=== PATIENT | male | born 1995 | race African-American/Black ===

== ENCOUNTER 2017-03-29 | Emergency (ER) | payer SELFPAY ==
[2017-03-29 00:01] VITALS: BP 139/76; PULSE 117; RESP 22; TEMP 98.5; O2SAT 93
[2017-03-29] MEDS ORDERED: ALBUAER3 INH (00:08)
[2017-03-29 00:12] VITALS: O2SAT 97
[2017-03-29 00:15] VITALS: O2SAT 99
[2017-03-29] MEDS ORDERED: SODIUM CHLOR 0.9% 1000 ML INJ 1,000 ML IV ONE (00:15)
[2017-03-29] MEDS: RESP: ALBUTEROL 2.5 MG/IPRATROPIUM 0.5 MG NEB (SCH) INH (00:15)
[2017-03-29] MEDS ORDERED: methylPREDNISolone SOD SUCC 125 MG/2 ML VIAL IV PUSH ONE (00:15)
[2017-03-29] MEDS ORDERED: MORPHINE SULFATE 2 MG/ML INJ IV PUSH ONE (00:15)
[2017-03-29] MEDS ORDERED: SODIUM CHLORIDE 0.9% FLUSH 10 ML FLUSH IVF PRN (00:15)
[2017-03-29 00:54] LABS: AUTOMATED NEUTROPHIL # 2.3 TH/MM3 (1.8-7.7); BASOPHIL % 0.8 % (0.0-2.0); EOSINOPHIL # 0.2 TH/MM3 (0-0.4); EOSINOPHIL % 3.4 % (0.0-4.0); HEMATOCRIT 41.2 % (39.0-51.0); LYMPHOCYTE # 1.5 TH/MM3 (1.0-4.8); MEAN CELL VOLUME 86.2 FL (80.0-100.0); MEAN CORPUSCULAR HGB CONC 33.6 % (32.0-36.0); MONO % 15.2 % (0.0-8.0); NEUT % 48.6 % (16.0-70.0); PLATELET COUNT 294 TH/MM3 (150-450); RED BLOOD COUNT 4.77 MIL/MM3 (4.50-5.90); RED CELL DISTRIBUTION WIDTH 19.9 % (11.6-17.2); WHITE BLOOD COUNT 4.8 TH/MM3 (4.0-11.0)
--- NOTE | 2017-03-29 01:05 | RADRPT ---
EXAM DATE/TIME: 03/29/2017 00:31 [facility] COMPARISON: No previous studies available for comparison. INDICATIONS : Shortness of breath. MEDICAL HISTORY : None. SURGICAL HISTORY : None. ENCOUNTER: Initial ACUITY: 1 day PAIN SCORE: 0/10 LOCATION: Bilateral chest FINDINGS: A single view of the chest demonstrates the lungs to be symmetrically aerated without evidence of mas s, infiltrate or effusion. The cardiomediastinal contours are unremarkable. Osseous structures are intact. CONCLUSION: No acute disease. Jensen Griffith MD on March 29, 2017 at 1:02 Board Certified Radiologist. This report was verified electronically.
[2017-03-29 01:09] LABS: ANION GAP 8 MEQ/L (5-15); BICARBONATE 28.7 MEQ/L (21.0-32.0); BLOOD UREA NITROGEN 12 MG/DL (7-18); CHLORIDE 104 MEQ/L (98-107); GLOMERULAR FILTRATION RATE 80 ML/MIN (>89); POTASSIUM 3.1 MEQ/L (3.5-5.1); SODIUM (NA) 141 MEQ/L (136-145)
[2017-03-29] MEDS: RESP: ALBUTEROL 2.5 MG/3 ML NEB (SCH) INH (01:15)
[2017-03-29 01:23] LABS: CREATINE KINASE 1063 U/L (39-308)
[2017-03-29 01:35] LABS: CKMB 5.5 NG/ML (0.5-3.6)
[2017-03-29 01:37] VITALS: BP 160/68; PULSE 94; RESP 16; O2SAT 99
--- NOTE | 2017-03-29 01:57 | PD ---
HPI Chief Complaint: Respiratory Symptoms Time Seen by Provider: 00:04 Travel History International Travel<30 days: No Contact w/Intl Traveler<30days: No History of Present Illness HPI The patient is 21 years old. History of asthma. He reports wheezing shortness of breath tonight. He also reports chest tightness. He does not recall last took steroids. Location pulmonary. Severity moderate. TIming constant. PFSH Past Medical History Asthma: Yes Tetanus Vaccination: Unknown Influenza Vaccination: No Past Surgical History Other Surgery: Yes (right arm surgery ) Social History Alcohol Use: No (occasional ) Tobacco Use: Yes Substance Use: No Allergies-Medications (Allergen,Severity, Reaction): Coded Allergies: No Known Allergies (Verified Allergy, Unknown, 03/29/17) Reported Meds & Prescriptions Reported Meds & Active Scripts Active Reported Proair Hfa 8.5 GM Inh (Albuterol Sulfate) 90 Mcg/Act Aer 2 Puff INH Q4-6H PRN 108 mcg/actuation Review of Systems Except as stated in HPI: all other systems reviewed are Neg General / Constitutional: No: Fever HENT: No: Headaches Physical Exam Narrative GENERAL: 21 yo M WNWD moderate distress 2/2 wehezing SKIN: Warm and dry. HEAD: Atraumatic. Normocephalic. EYES: Pupils equal and round. No scleral icterus. No injection or drainage. ENT: No nasal bleeding or discharge. Mucous membranes pink and moist. NECK: Trachea midline. No JVD. CARDIOVASCULAR: Tachycardia. RR. RESPIRATORY: Wheezing present bilaterally. Tachypnea with retractions. GASTROINTESTINAL: Abdomen soft, non-tender, nondistended. Hepatic and splenic margins not palpable. MUSCULOSKELETAL: Extremities without clubbing, cyanosis, or edema. No obvious deformities. NEUROLOGICAL: Awake and alert. No obvious cranial nerve deficits. Motor grossly within normal limits. Five out of 5 muscle strength in the arms and legs. Normal speech. PSYCHIATRIC: Appropriate mood and affect; insight and judgment normal. Data Data Last Documented VS Vital Signs Date Time Temp Pulse Resp B/P (MAP) Pulse Ox O2 Delivery O2 Flow Rate FiO2 03/29/17 01:37 94 16 160/68 (98) 99 2.00 03/29/17 00:15 Nasal Cannula 03/29/17 00:01 98.5 VS reviewed Orders Orders Chest, Single Ap (03/29/17 00:06) Ecg Monitoring (03/29/17 00:06) Iv Access Insert/Monitor (03/29/17 00:06) Oximetry (03/29/17 00:06) Oxygen Administration (03/29/17 00:06) Methylprednisolone So Succ Inj (Solumedr (03/29/17 00:15) Albuterol-Ipratropium Neb (Duoneb Neb) (03/29/17 00:15) Sodium Chloride 0.9% Flush (Ns Flush) (03/29/17 00:15) Sodium Chlor 0.9% 1000 Ml Inj (Ns 1000 M (03/29/17 00:15) Morphine Inj (Morphine Inj) (03/29/17 00:15) Electrocardiogram (03/29/17:) Complete Blood Count With Diff (03/29/17:) Basic Metabolic Panel (Bmp) (03/29/17:17) Ckmb (Isoenzyme) Profile (03/29/17:) Troponin I (03/29/17:) Iv Access Insert/Monitor (03/29/17:17) Ecg Monitoring (03/29/17:17) Oxygen Administration (03/29/17:17) Oximetry (03/29/17:17) Albuterol Neb (Albuterol Neb) (03/29/17 01:15) CKMB (03/29/17 00:23) CKMB% (03/29/17 00:23) Electrocardiogram (03/29/17 ) Ed Discharge Order (03/29/17 02:33) Labs Laboratory Tests Test 03/29/17 00:23 White Blood Count 4.8 TH/MM3 Red Blood Count 4.77 MIL/MM3 Hemoglobin 13.8 GM/DL Hematocrit 41.2 % Mean Corpuscular Volume 86.2 FL Mean Corpuscular Hemoglobin 29.0 PG Mean Corpuscular Hemoglobin Concent 33.6 % Red Cell Distribution Width 19.9 % Platelet Count 294 TH/MM3 Mean Platelet Volume 8.3 FL Neutrophils (%) (Auto) 48.6 % Lymphocytes (%) (Auto) 32.0 % Monocytes (%) (Auto) 15.2 % Eosinophils (%) (Auto) 3.4 % Basophils (%) (Auto) 0.8 % Neutrophils # (Auto) 2.3 TH/MM3 Lymphocytes # (Auto) 1.5 TH/MM3 Monocytes # (Auto) 0.7 TH/MM3 Eosinophils # (Auto) 0.2 TH/MM3 Basophils # (Auto) 0.0 TH/MM3 CBC Comment AUTO DIFF Differential Comment AUTO DIFF CONFIRMED Platelet Estimate NORMAL Platelet Morphology Comment NORMAL Blood Urea Nitrogen 12 MG/DL Creatinine 1.14 MG/DL Random Glucose 71 MG/DL Calcium Level 9.0 MG/DL Sodium Level 141 MEQ/L Potassium Level 3.1 MEQ/L Chloride Level 104 MEQ/L Carbon Dioxide Level 28.7 MEQ/L Anion Gap 8 MEQ/L Estimat Glomerular Filtration Rate 80 ML/MIN Total Creatine Kinase 1063 U/L Creatine Kinase MB 5.5 NG/ML Creatine Kinase MB % 0.5 % Troponin I LESS THAN 0.02 NG/ML MDM Medical Decision Making Medical Screen Exam Complete: Yes Emergency Medical Condition: Yes Medical Record Reviewed: Yes Differential Diagnosis asthma, pna, ptx Narrative Course CBC & BMP Diagram 03/29/17 00:23 Calcium Level 9.0 Total CK 1063 Tn < 0.02 EKG Troponin is less than 0.02 Last 24 hours Impressions Chest X-Ray 03/29/17 0006 Signed Impressions: Service Date/Time: Monday, March 29, 2017 00:31 - CONCLUSION: No acute disease. Jensen Griffith MD Presentation c/w asthma exacerbation Scripts as below Diagnosis Primary Impression: Asthma exacerbation Qualified Codes: J45.901 - Unspecified asthma with (acute) exacerbation Additional Impression: Chest pain Qualified Codes: R07.9 - Chest pain, unspecified Referrals: [facility] 2 days Additional Instructions: You have a choice when it comes to health care, and we are glad that you chose [facility]. Hopefully, we have met your expectations on today's visit. You are welcome to return to [facility] at any time, as we are committed to meeting the health care needs of our community. Med/Other Pt SpecificInfo: Prescription(s) given Scripts Albuterol Neb (Albuterol Neb) 2.5 Mg/3 Ml Neb 2.5 MG NEB TID NEB Y for SHORTNESS OF BREATH, #60 NEBULE 0 Refills Prov: Mandeep Russ MD 03/29/17 Disposition: DISCHARGE HOME Condition: Stable Mandeep Russ MD Mar 29, 2017 01:57
[2017-03-29 02:27] LABS: HEMO FLAGS AUTO DIFF
[2017-03-29 02:32] LABS: PLATELET ESTIMATE SMEAR NORMAL (NORMAL); PLATELET MORPHOLOGY NORMAL (NORMAL); SCAN/DIFF AUTO DIFF CONFIRMED
[2017-03-29] MEDS ORDERED: ALBU0.08 NEB (02:34)
[2017-03-29] MEDS ORDERED: PRED20 PO (02:36)
--- NOTE | 2017-03-29 15:28 | EKG ---
Date Performed: 03/29/2017 Time Performed: 02:15:09 PTAGE: 21 years EKG: Sinus rhythm WITH FREQUENT ATRIAL PREMATURE COMPLEXES BORDERLINE RIGHT AXIS DEVIATION NONSPECIFIC ST & T-WAVE ABN ORMALITY ABNORMAL RHYTHM ECG Compared to prior tracing no significant change DOCTOR: Digna Bangura Interpretating Date/Time 03/29/2017 15:28:06
--- NOTE | 2017-03-29 15:31 | EKG ---
Date Performed: 03/29/2017 Time Performed: 00:17:28 PTAGE: 21 years EKG: SINUS TACHYCARDIA WITH OCCASIONAL VENTRICULAR PREMATURE COMPLEXES WITH OCCASIONAL SUPRAVENT RICULAR PREMATURE COMPLEXES BORDERLINE RIGHT AXIS DEVIATION NONSPECIFIC ST & T-WAVE ABNORMALITY ABNOR MAL ECG Compared to prior tracing no significant change DOCTOR: Digna Bangura Interpretating Date/Time 03/29/2017 15:30:05
== END 2017-03-29 03:01 | disposition home or self-care (01) ==
LOC: NEPC
DX: J45.901 Unspecified asthma with (acute) exacerbation (principal); R07.9 Chest pain, unspecified; R94.31 Abnormal electrocardiogram [ECG] [EKG]; R00.0 Tachycardia, unspecified; I49.3 Ventricular premature depolarization; Z72.0 Tobacco use
CPT/HCPCS: 71010; 80048; 82550; 82552; 84484; 85025; 93005; 94640; 94664; 96361; 96374; 96375; 99285; J2270; J2930; J7030; J7613

== ENCOUNTER 2017-07-23 12:01 | Inpatient (IN) | payer OTHER ==
[2017-07-23] VITALS (10 sets, daily range): BP systolic 127–149; BP diastolic 68–89; PULSE 99–127; RESP 16–28; TEMP 98.4–100.6; O2SAT 92–100
[~2017-07-23] VITALS: Ht 182.9 cm; Wt 75.0 kg
[~2017-07-23 12:01] MED LIST: ALBU0.08 NEB; ALBUAER3 INH; PRED20 PO
--- NOTE | 2017-07-23 12:13 | PD ---
HPI Chief Complaint: Respiratory Symptoms Time Seen by Provider: 12:09 Travel History International Travel<30 days: No Contact w/Intl Traveler<30days: No Traveled to known affect area: No History of Present Illness HPI 21-year-old male with PMH of asthma, environmental allergies, current smoker presents to the ED for evaluation of approximately 24 hour history of increased breathing difficulties, wheezing, chest tightness. He denies chest pain, palpitations. Patient states that he's had a little sinus congestion and runny nose and sore throat that proceeded his difficulties with breathing. He treated at home with albuterol nebulizer about 4 hours ago with no improvement of symptoms. He treated at home with a few puffs on his rescue inhaler and 2 albuterol treatments total. PFSH Past Medical History Asthma: Yes Respiratory: Yes Past Surgical History Other Surgery: Yes (right arm surgery ) Social History Alcohol Use: No (occasional ) Tobacco Use: Yes Substance Use: No Allergies-Medications (Allergen,Severity, Reaction): Coded Allergies: No Known Allergies (Verified Allergy, Unknown, 07/23/17) Reported Meds & Prescriptions Reported Meds & Active Scripts Active Albuterol Neb (Albuterol Sulfate) 2.5 Mg/3 Ml Neb 2.5 Mg NEB TID NEB PRN Reported Proair Hfa 8.5 GM Inh (Albuterol Sulfate) 90 Mcg/Act Aer 2 Puff INH Q4-6H PRN 108 mcg/actuation Review of Systems Except as stated in HPI: all other systems reviewed are Neg Physical Exam Narrative GENERAL: Well-nourished, well-developed male, speaking in short sentences. SKIN: Focused skin assessment warm/dry. HEAD: Normocephalic. EYES: No scleral icterus. No injection or drainage. NECK: Supple, trachea midline. No JVD or lymphadenopathy. CARDIOVASCULAR: Regular rate and rhythm without murmurs, gallops, or rubs. RESPIRATORY: Breath sounds tight, wheezy bilaterally. + accessory muscle use. GASTROINTESTINAL: Abdomen soft, non-tender, nondistended. MUSCULOSKELETAL: No cyanosis, or edema. BACK: Nontender without obvious deformity. No CVA tenderness. Data Data Last Documented VS Vital Signs Date Time Temp Pulse Resp B/P (MAP) Pulse Ox O2 Delivery O2 Flow Rate FiO2 07/23/17 15:10 121 20 135/75 (95) 96 Nasal Cannula 2.00 07/23/17 12:04 98.4 Orders Orders Electrocardiogram (07/23/17 12:09) Complete Blood Count With Diff (07/23/17 12:09) Comprehensive Metabolic Panel (07/23/17 12:09) Chest, Single Ap (07/23/17 12:09) Ecg Monitoring (07/23/17 12:09) Iv Access Insert/Monitor (07/23/17 12:09) Oximetry (07/23/17 12:09) Oxygen Administration (07/23/17 12:09) Methylprednisolone So Succ Inj (Solumedr (07/23/17 12:15) Albuterol-Ipratropium Neb (Duoneb Neb) (07/23/17 12:15) Sodium Chloride 0.9% Flush (Ns Flush) (07/23/17 12:15) Sodium Chlor 0.9% 1000 Ml Inj (Ns 1000 M (07/23/17 12:15) Albuterol Neb (Albuterol Neb) (07/23/17 13:45) Admit Order (Ed Use Only) (07/23/17 15:33) Labs Laboratory Tests Test 07/23/17 12:40 White Blood Count 5.4 TH/MM3 Red Blood Count 4.61 MIL/MM3 Hemoglobin 15.0 GM/DL Hematocrit 43.7 % Mean Corpuscular Volume 94.7 FL Mean Corpuscular Hemoglobin 32.5 PG Mean Corpuscular Hemoglobin Concent 34.3 % Red Cell Distribution Width 16.5 % Platelet Count 244 TH/MM3 Mean Platelet Volume 7.9 FL Neutrophils (%) (Auto) 73.5 % Lymphocytes (%) (Auto) 11.6 % Monocytes (%) (Auto) 12.5 % Eosinophils (%) (Auto) 1.9 % Basophils (%) (Auto) 0.5 % Neutrophils # (Auto) 4.0 TH/MM3 Lymphocytes # (Auto) 0.6 TH/MM3 Monocytes # (Auto) 0.7 TH/MM3 Eosinophils # (Auto) 0.1 TH/MM3 Basophils # (Auto) 0.0 TH/MM3 CBC Comment DIFF FINAL Differential Comment Blood Urea Nitrogen 9 MG/DL Creatinine 1.21 MG/DL Random Glucose 83 MG/DL Total Protein 8.1 GM/DL Albumin 4.2 GM/DL Calcium Level 9.2 MG/DL Alkaline Phosphatase 69 U/L Aspartate Amino Transf (AST/SGOT) 43 U/L Alanine Aminotransferase (ALT/SGPT) 26 U/L Total Bilirubin 0.3 MG/DL Sodium Level 139 MEQ/L Potassium Level 4.0 MEQ/L Chloride Level 104 MEQ/L Carbon Dioxide Level 25.0 MEQ/L Anion Gap 10 MEQ/L Estimat Glomerular Filtration Rate 90 ML/MIN MDM Medical Decision Making Medical Screen Exam Complete: Yes Emergency Medical Condition: Yes Differential Diagnosis Asthma exacerbation versus seasonal/environmental allergies versus viral syndrome versus other Narrative Course 21-year-old male with PMH of asthma, environmental allergies, current smoker presents to the ED for evaluation of approximately 24 hour history of increased breathing difficulties, wheezing, chest tightness. He denies chest pain, palpitations. He treated at home with a few puffs on his rescue inhaler and 2 albuterol treatments total. Heart rate 117, pulse ox 95% on room air on presentation. On exam the patient is speaking in short sentences, breath sounds tight and diminished bilaterally. IV was established. Patient was administered 125 mg Solu-Medrol, DuoNeb 3. EKG: Rate 122, sinus tachycardia. [place] interval 136, QRS 92, QTC 379. Borderline right axis deviation. Nonspecific T-wave abnormalities. Reviewed by Dr. Lynn. CXR: No acute abnormalities per radiology read. CBC and CMP without concerning abnormalities. On recheck patient states that his symptoms have not improved. Lung sounds now diffusely whistling and wheezing. He was administered albuterol treatments 3. O2 sats fluctuating between 87 and 94% on room air. Patient was placed on 2 L O2 by nasal cannula. Given his continued distress I recommended that the patient be admitted for further treatment of his asthma exacerbation. He is agreeable to this plan. I spoke with Dr. Torres who agrees to accept the patient to the medicine service. Please see medicine notes for disposition. Shanique Hoover Jul 23, 2017 12:13
[2017-07-23] MEDS ORDERED: methylPREDNISolone SOD SUCC 125 MG/2 ML VIAL IV PUSH ONE (12:15)
[2017-07-23] MEDS ORDERED: SODIUM CHLORIDE 0.9% FLUSH 10 ML FLUSH IVF PRN (12:15)
[2017-07-23] MEDS ORDERED: SODIUM CHLOR 0.9% 1000 ML INJ 1,000 ML IV ONE (12:15)
[2017-07-23] MEDS: RESP: ALBUTEROL 2.5 MG/IPRATROPIUM 0.5 MG NEB (SCH) INH ×2 (12:18→12:19)
[2017-07-23 13:19] LABS: BASOPHIL % 0.5 % (0.0-2.0); EOSINOPHIL # 0.1 TH/MM3 (0-0.4); EOSINOPHIL % 1.9 % (0.0-4.0); HEMATOCRIT 43.7 % (39.0-51.0); LYMPH % 11.6 % (9.0-44.0); LYMPHOCYTE # 0.6 TH/MM3 (1.0-4.8); MEAN CELL VOLUME 94.7 FL (80.0-100.0); MEAN CORPUSCULAR HEMOGLOBIN 32.5 PG (27.0-34.0); MEAN CORPUSCULAR HGB CONC 34.3 % (32.0-36.0); MEAN PLATELET VOLUME 7.9 FL (7.0-11.0); MONO % 12.5 % (0.0-8.0); MONOCYTE # 0.7 TH/MM3 (0-0.9); NEUT % 73.5 % (16.0-70.0); PLATELET COUNT 244 TH/MM3 (150-450); RED BLOOD COUNT 4.61 MIL/MM3 (4.50-5.90); RED CELL DISTRIBUTION WIDTH 16.5 % (11.6-17.2); WHITE BLOOD COUNT 5.4 TH/MM3 (4.0-11.0)
[2017-07-23 13:37] LABS: ALT (GPT) 26 U/L (12-78)
[2017-07-23 13:40] LABS: ALBUMIN 4.2 GM/DL (3.4-5.0); ALKALINE PHOSPHATASE 69 U/L (45-117); AST (GOT) 43 U/L (15-37); BLOOD UREA NITROGEN 9 MG/DL (7-18); CALCIUM 9.2 MG/DL (8.5-10.1); CHLORIDE 104 MEQ/L (98-107); CREATININE 1.21 MG/DL (0.60-1.30); GLOMERULAR FILTRATION RATE 90 ML/MIN (>89); GLUCOSE,RANDOM 83 MG/DL (74-106); SODIUM (NA) 139 MEQ/L (136-145); TOTAL BILIRUBIN ADULT 0.3 MG/DL (0.2-1.0); TOTAL PROTEIN 8.1 GM/DL (6.4-8.2)
--- NOTE | 2017-07-23 13:44 | PD ---
Data Data Last Documented VS Vital Signs Date Time Temp Pulse Resp B/P (MAP) Pulse Ox O2 Delivery O2 Flow Rate FiO2 07/23/17 15:10 121 20 135/75 (95) 96 Nasal Cannula 2.00 07/23/17 12:04 98.4 Orders Orders Electrocardiogram (07/23/17 12:09) Complete Blood Count With Diff (07/23/17 12:09) Comprehensive Metabolic Panel (07/23/17 12:09) Chest, Single Ap (07/23/17 12:09) Ecg Monitoring (07/23/17 12:09) Iv Access Insert/Monitor (07/23/17 12:09) Oximetry (07/23/17 12:09) Oxygen Administration (07/23/17 12:09) Methylprednisolone So Succ Inj (Solumedr (07/23/17 12:15) Albuterol-Ipratropium Neb (Duoneb Neb) (07/23/17 12:15) Sodium Chloride 0.9% Flush (Ns Flush) (07/23/17 12:15) Sodium Chlor 0.9% 1000 Ml Inj (Ns 1000 M (07/23/17 12:15) Albuterol Neb (Albuterol Neb) (07/23/17 13:45) Admit Order (Ed Use Only) (07/23/17 15:33) Labs Laboratory Tests Test 07/23/17 12:40 White Blood Count 5.4 TH/MM3 Red Blood Count 4.61 MIL/MM3 Hemoglobin 15.0 GM/DL Hematocrit 43.7 % Mean Corpuscular Volume 94.7 FL Mean Corpuscular Hemoglobin 32.5 PG Mean Corpuscular Hemoglobin Concent 34.3 % Red Cell Distribution Width 16.5 % Platelet Count 244 TH/MM3 Mean Platelet Volume 7.9 FL Neutrophils (%) (Auto) 73.5 % Lymphocytes (%) (Auto) 11.6 % Monocytes (%) (Auto) 12.5 % Eosinophils (%) (Auto) 1.9 % Basophils (%) (Auto) 0.5 % Neutrophils # (Auto) 4.0 TH/MM3 Lymphocytes # (Auto) 0.6 TH/MM3 Monocytes # (Auto) 0.7 TH/MM3 Eosinophils # (Auto) 0.1 TH/MM3 Basophils # (Auto) 0.0 TH/MM3 CBC Comment DIFF FINAL Differential Comment Blood Urea Nitrogen 9 MG/DL Creatinine 1.21 MG/DL Random Glucose 83 MG/DL Total Protein 8.1 GM/DL Albumin 4.2 GM/DL Calcium Level 9.2 MG/DL Alkaline Phosphatase 69 U/L Aspartate Amino Transf (AST/SGOT) 43 U/L Alanine Aminotransferase (ALT/SGPT) 26 U/L Total Bilirubin 0.3 MG/DL Sodium Level 139 MEQ/L Potassium Level 4.0 MEQ/L Chloride Level 104 MEQ/L Carbon Dioxide Level 25.0 MEQ/L Anion Gap 10 MEQ/L Estimat Glomerular Filtration Rate 90 ML/MIN MDM Supervised Visit with LEANDRA: Yes Narrative Course I, Dr. Lynn, have reviewed the advance practice practitioner's documentation and am in agreement, met with the patient face to face, made the diagnosis, and the medical decision making was done by me. *My assessment and Findings: Patient seen and examined by me, remains tachypneic with inspiratory and expiratory wheezing, may have an anxiety component of his symptoms, saturations are variable and patient reluctant to hold still for adequate sat waveform, patient states this is 1 or more severe asthma attacks ever had in his life, after. Observation in the emergency department and a total of 6 breathing treatments patient still is very worked up about his shortness of breath and will be placed in observation status per Tarun Lynn MD Jul 23, 2017 13:44
[2017-07-23] MEDS: RESP: ALBUTEROL 2.5 MG/3 ML NEB (SCH) INH ×2 (13:47→13:48)
--- NOTE | 2017-07-23 14:10 | RADRPT ---
EXAM DATE/TIME: 07/23/2017 12:35 [facility] COMPARISON: CHEST SINGLE AP, March 29, 2017, 0:31. INDICATIONS : Wheezing and shortness of breath. MEDICAL HISTORY : None. SURGICAL HISTORY : None. ENCOUNTER: Initial ACUITY: 2 days PAIN SCORE: 0/10 LOCATION: Bilateral chest FINDINGS: A single view of the chest demonstrates the lungs to be symmetrically aerated without evidence of mas s, infiltrate or effusion. The lungs are hyperaerated bilaterally. The cardiomediastinal contours are unremarkable. Osseous structures are intact. CONCLUSION: No acute disease. No significant change has occurred. Richard Doe MD on July 23, 2017 at 14:08 Board Certified Radiologist. This report was verified electronically.
[2017-07-23] MEDS ORDERED: ACETAMINOPHEN 325 MG TAB PO PRN (15:45)
[2017-07-23] MEDS ORDERED: SODIUM CHLORIDE 0.9% FLUSH 10 ML FLUSH IV FLUSH PRN (15:45)
[2017-07-23] MEDS ORDERED: SENNOSIDES 8.6 MG TAB PO PRN (15:45)
[2017-07-23] MEDS ORDERED: MAGNESIUM HYDROXIDE SUSP 30 ML CUP PO PRN (15:45)
[2017-07-23] MEDS ORDERED: LACTULOSE SYRUP 20 GM/30 ML CUP PO PRN (15:45)
[2017-07-23] MEDS ORDERED: BISACODYL 10 MG SUPP RECTAL PRN (15:45)
[2017-07-23] MEDS ORDERED: NALOXONE HCL 0.4 MG/ML AMP IV PUSH PRN (15:45)
[2017-07-23] MEDS ORDERED: ONDANSETRON HCL 4 MG/2 ML VIAL IVP PRN (15:45)
[2017-07-23] MEDS: RESP: ALBUTEROL 2.5 MG/IPRATROPIUM 0.5 MG NEB (SCH) NEB ×2 (16:00→19:51)
[2017-07-23] MEDS: ENOXAPARIN SODIUM 40 MG/0.4 ML SYRINGE SQ SCH (17:00)
[2017-07-23] MEDS ORDERED: methylPREDNISolone SOD SUCC 40 MG/1 ML VIAL IV PUSH ONE (17:00)
--- NOTE | 2017-07-23 17:02 | HHI.HP ---
[facility] Service [facility] Primary Care Physician No Primary Care Physician Admission Diagnosis asthma exacerbation Diagnoses: (1) Asthma exacerbation Chief Complaint: Shortness of breath Travel History International Travel<30 Days: No Contact w/Intl Traveler <30 Da: No Traveled to Known Affected Are: No History of Present Illness Written by Mya Foss, acting as scribe for Dr. Torres on 07/23/17 at 17:15. 21-year-old Italian male with past medical history significant for asthma and seasonal allergies who presents to the ED with complaints of difficulty breathing and wheezing. Patient reports that difficulty breathing began last night and reports trying to use his home medications with little relief. He does endorse some chills, denies fever. He also reports productive cough for a yellow/greenish sputum, as any ill contacts. He does smoke tobacco as well as occasional marijuana, denies any illicit drug use or inhalation of drugs or cocaine. He repots visiting the ED about twice a year due to asthma exacerbation , had never required mechanical ventilation. Review of Systems Constitutional: COMPLAINS OF: Chills, DENIES: Fever Respiratory: COMPLAINS OF: Cough, Wheezing, Sputum production, Shortness of breath Cardiovascular: DENIES: Chest pain, Syncope Integumentary: DENIES: Rash Except as stated in HPI: all other systems reviewed are Neg Past Family Social History Past Medical History Asthma Seasonal allergies Past Surgical History Right arm skin grafting due to deep laceration Reported Medications Reported Meds & Active Scripts Active Albuterol Neb (Albuterol Sulfate) 2.5 Mg/3 Ml Neb 2.5 Mg NEB TID NEB PRN Reported Proair Hfa 8.5 GM Inh (Albuterol Sulfate) 90 Mcg/Act Aer 2 Puff INH Q4-6H PRN 108 mcg/actuation Allergies: Coded Allergies: No Known Allergies (Verified Allergy, Unknown, 07/23/17) Active Ordered Medications Current Medications Medications (Trade) Dose Ordered Sig/Tabby Route Start Time Stop Time Status Last Admin (Duoneb Neb) 1 ampule Q4HR WHILE AWAKE NEB NEB 07/23/17 16:00 07/23/17 16:00 (Duoneb Neb) 1 ampule Q2HR NEB PRN NEB 07/23/17 15:45 (Deltasone) 40 mg DAILY PO 07/24/17 09:00 07/28/17 08:59 (NS Flush) 2 ml UNSCH PRN IV FLUSH 07/23/17 15:45 (NS Flush) 2 ml BID IV FLUSH 07/23/17 21:00 (Tylenol) 650 mg Q4H PRN PO 07/23/17 15:45 (Zofran Inj) 4 mg Q6H PRN IVP 07/23/17 15:45 (Lovenox Inj) 40 mg Q24H SQ 07/23/17 17:00 (Narcan Inj) 0.4 mg UNSCH PRN IV PUSH 07/23/17 15:45 (Francheska-Colace) 1 tab BID PO 07/23/17 21:00 (Milk Of Magnesia Liq) 30 ml Q12H PRN PO 07/23/17 15:45 (Senokot) 17.2 mg Q12H PRN PO 07/23/17 15:45 (Dulcolax Supp) 10 mg DAILY PRN RECTAL 07/23/17 15:45 (Lactulose Liq) 30 ml DAILY PRN PO 07/23/17 15:45 Family History Denies significant PFH for asthma, CA, DM, hear disease, or CA Social History Tobacco: current user Alcohol: socially Illicit drug use: marijuana occasionally Physical Exam Vital Signs Vital Signs Date Time Temp Pulse Resp B/P (MAP) Pulse Ox O2 Delivery O2 Flow Rate FiO2 07/23/17 16:37 99.1 119 18 149/74 (99) 92 07/23/17 15:10 121 20 135/75 (95) 96 Nasal Cannula 2.00 07/23/17 13:40 93 Room Air 07/23/17 13:40 26 93 Room Air 07/23/17 13:30 112 28 129/89 (102) 93 07/23/17 12:04 98.4 117 16 127/68 (87) 95 Physical Exam GENERAL: This is a well-nourished, well-developed patient, -Italian male in no apparent distress. SKIN: No rashes, ecchymoses. Right forearm skin graph scar noted. Cool and dry. HEAD: Atraumatic. Normocephalic. EYES: Pupils equal round and reactive. No scleral icterus. No injection or drainage. ENT: Nose without bleeding, purulent drainage or septal hematoma. Throat without erythema, tonsillar hypertrophy or exudate. Uvula midline. Airway patent. NECK: Trachea midline. No JVD CARDIOVASCULAR: Sinus tachycardia, without murmurs, gallops, or rubs. RESPIRATORY: Expiratory and inspiratory wheezing noted throughout all lung dillon, diminished at bilateral bases. No rhonchi, crackles noted. Visible deep breathing. GASTROINTESTINAL: Abdomen soft, non-tender, nondistended. No guarding. MUSCULOSKELETAL: Extremities without clubbing, cyanosis, or edema. No joint tenderness, effusion, or edema noted. NEUROLOGICAL: Awake and alert. Cranial nerves II through XII grossly intact. Motor and sensory grossly within normal limits. Five out of 5 muscle strength in all muscle groups. Normal speech. Laboratory Laboratory Tests Test 07/23/17 12:40 White Blood Count 5.4 Red Blood Count 4.61 Hemoglobin 15.0 Hematocrit 43.7 Mean Corpuscular Volume 94.7 Mean Corpuscular Hemoglobin 32.5 Mean Corpuscular Hemoglobin Concent 34.3 Red Cell Distribution Width 16.5 Platelet Count 244 Mean Platelet Volume 7.9 Neutrophils (%) (Auto) 73.5 Lymphocytes (%) (Auto) 11.6 Monocytes (%) (Auto) 12.5 Eosinophils (%) (Auto) 1.9 Basophils (%) (Auto) 0.5 Neutrophils # (Auto) 4.0 Lymphocytes # (Auto) 0.6 Monocytes # (Auto) 0.7 Eosinophils # (Auto) 0.1 Basophils # (Auto) 0.0 CBC Comment DIFF FINAL Differential Comment Blood Urea Nitrogen 9 Creatinine 1.21 Random Glucose 83 Total Protein 8.1 Albumin 4.2 Calcium Level 9.2 Alkaline Phosphatase 69 Aspartate Amino Transf (AST/SGOT) 43 Alanine Aminotransferase (ALT/SGPT) 26 Total Bilirubin 0.3 Sodium Level 139 Potassium Level 4.0 Chloride Level 104 Carbon Dioxide Level 25.0 Anion Gap 10 Estimat Glomerular Filtration Rate 90 Result Diagram: 07/23/17 1240 07/23/17 1240 Caprini VTE Risk Assessment Caprini VTE Risk Assessment: No/Low Risk (score <= 1) Caprini Risk Assessment Model Point Value = 1 Point Value = 2 Point Value = 3 Point Value = 5 Age 41-60 Minor surgery BMI > 25 kg/m2 Swollen legs Varicose veins or History of unexplained or recurrent spontaneous Oral contraceptives or hormone replacement Sepsis (< 1 month) Serious lung disease, including pneumonia (< 1 month) Abnormal pulmonary function Acute myocardial infarction Congestive heart failure (< 1 month) History of inflammatory bowel disease Medical patient at bed rest Age 61-74 Arthroscopic surgery Major open surgery (> 45 min) Laparoscopic surgery (> 45 min) Malignancy Confined to bed (> 72 hours) Immobilizing plaster cast Central venous access Age >= 75 History of VTE Family history of VTE Factor V Leiden Prothrombin [id number] Lupus anticoagulant Anticardiolipin antibodies Elevated serum homocysteine Heparin-induced thrombocytopenia Other congenital or acquired thrombophilia Stroke (< 1 month) Elective arthroplasty Hip, pelvis, or leg fracture Acute spinal cord injury (< 1 month) Prophylaxis Regimen Total Risk Factor Score Risk Level Prophylaxis Regimen 0-1 Low Early ambulation 2 Moderate Order ONE of the following: *Sequential Compression Device (SCD) *Heparin 5000 units SQ BID 3-4 Higher Order ONE of the following medications: *Heparin 5000 units SQ TID *Enoxaparin/Lovenox 40 mg SQ daily (WT < 150 kg, CrCl > 30 mL/min) *Enoxaparin/Lovenox 30 mg SQ daily (WT < 150 kg, CrCl > 10-29 mL/min) *Enoxaparin/Lovenox 30 mg SQ BID (WT < 150 kg, CrCl > 30 mL/min) AND/OR *Sequential Compression Device (SCD) 5 or more Highest Order ONE of the following medications: *Heparin 5000 units SQ TID (Preferred with Epidurals) *Enoxaparin/Lovenox 40 mg SQ daily (WT < 150 kg, CrCl > 30 mL/min) *Enoxaparin/Lovenox 30 mg SQ daily (WT < 150 kg, CrCl > 10-29 mL/min) *Enoxaparin/Lovenox 30 mg SQ BID (WT < 150 kg, CrCl > 30 mL/min) AND *Sequential Compression Device (SCD) Assessment and Plan Assessment and Plan 21-year-old male with PMH of asthma who currently smokes who presents to the ED with SOB and wheezing not relieved with albuterol treatments at home. Asthma exacerbation Acute respiratory failure with hypoxia desaturating on room air, now requiring oxygen supplement - Provided with neb treatments in ED, Solumedrol 125mg IV - Chest x-ray reviewed, no acute disease. CBC with no leukocytosis, VS reviewed ST and tachypnea likely related to albuterol and steroids, afebrile on admission, 99.1 temp around 4pm - Duonebs Q4hrs while awake, PRN duonebs Q2hrs as needed - Oxygent supplement via nasal cannula keep O2 sats >94% - Solumederol 40mg IV Q6hrs - Check CTA to rule out PE - Check ABG, reviewed o2 sat 89% on 2L NC, compensating well, O2 increased to 4L NC, add IS, EZ pap - Monitor O2 saturation, taper down O2 as needed. - Consider starting antibiotics for possible CAP if he develops leukocytosis Tobacco use - Discussed the importance of tobacco and marijuana cessation and dangers associated with this. DVT prophylaxis- subq Lovenox Discussed with nurse, patient and girlfriend at bedside. This note was transcribed by RENO Cam . I, Dr. Danielle Torres personally performed the history, physical exam, and medical decision making; and confirmed the accuracy of the information in the transcribed note. Authenticated by Dr. Danielle Torres on 07/23/17 at 17:15. Discussed Condition With pt, nurse, ED physician Mya Foss Jul 23, 2017 17:02 Danielle Torres MD Jul 23, 2017 17:54
[2017-07-23] MEDS ORDERED: MAGNESIUM OXIDE 400 MG TAB PO ONE (18:15)
[2017-07-23] MEDS ORDERED: IOHEXOL 350 MG/ML 10 ML VIAL (for RAD DIAG) IVCONTRAST ONE (18:24)
--- NOTE | 2017-07-23 18:51 | RADRPT ---
EXAM DATE/TIME: 07/23/2017 18:21 [facility] COMPARISON: No previous studies available for comparison. INDICATIONS : Shortness of breath; rule out pulmonary embolus. IV CONTRAST: 72 cc Omnipaque 350 (iohexol) IV RADIATION DOSE: 7.44 CTDIvol (mGy) MEDICAL HISTORY : None SURGICAL HISTORY : Right arm surgery ENCOUNTER: Initial ACUITY: 1 day PAIN SCALE: 0/10 LOCATION: chest TECHNIQUE: Volumetric scanning of the chest was performed using a pulmonary embolism protocol MIP images were re constructed. Using automated exposure control and adjustment of the mA and/or kV according to patien t size, radiation dose was kept as low as reasonably achievable to obtain optimal diagnostic quality images. DICOM format image data is available electronically for review and comparison. Follow-up recommendations for detected pulmonary nodules are based at a minimum on nodule size and pa tient risk factors according to Fleischner Society Guidelines. FINDINGS: PULMONARY ARTERIES: No filling defects are seen in the pulmonary arteries through the segmental level. LUNGS: There is no consolidation or pneumothorax . No concerning pulmonary nodule is visualized. Peribronch ial thickening present. PLEURAE: There is no pleural thickening or pleural effusion. MEDIASTINUM: There is good visualization of the great vessels of the middle mediastinum. No evidence of mediastin al or hilar adenopathy/mass. MUSCULOSKELETAL: Within normal limits for patient age. MISCELLANEOUS: The visualized upper abdominal organs demonstrate no acute abnormality. CONCLUSION: 1. Negative for pulmonary embolus. Mild peribronchial thickening especially at the lung bases. Miguel Ángel Adan MD on July 23, 2017 at 18:48 Board Certified Radiologist. This report was verified electronically.
[2017-07-23] MEDS: DOCUSATE SODIUM 50 MG/SENNA 8.6 MG TAB PO SCH (21:00)
[2017-07-23] MEDS: SODIUM CHLORIDE 0.9% FLUSH 10 ML FLUSH IV FLUSH SCH (21:30)
[2017-07-23] MEDS: RESP: ALBUTEROL 2.5 MG/IPRATROPIUM 0.5 MG NEB (PRN) NEB (22:10)
[2017-07-24] VITALS (8 sets, daily range): BP systolic 118–134; BP diastolic 56–66; PULSE 83–99; RESP 16–20; TEMP 97.9–99; O2SAT 94–98
[2017-07-24] MEDS: methylPREDNISolone SOD SUCC 40 MG/1 ML VIAL IV PUSH SCH ×3 (00:39→11:00)
[2017-07-24] MEDS: RESP: ALBUTEROL 2.5 MG/IPRATROPIUM 0.5 MG NEB (PRN) NEB (01:25)
[2017-07-24] MEDS: RESP: ALBUTEROL 2.5 MG/IPRATROPIUM 0.5 MG NEB (SCH) NEB ×3 (07:07→15:12)
[2017-07-24 07:14] LABS: HEMATOCRIT 43.1 % (39.0-51.0); MEAN CELL VOLUME 92.4 FL (80.0-100.0); MEAN CORPUSCULAR HEMOGLOBIN 32.2 PG (27.0-34.0); MEAN CORPUSCULAR HGB CONC 34.8 % (32.0-36.0); MEAN PLATELET VOLUME 8.4 FL (7.0-11.0); PLATELET COUNT 287 TH/MM3 (150-450); RED BLOOD COUNT 4.66 MIL/MM3 (4.50-5.90); RED CELL DISTRIBUTION WIDTH 16.3 % (11.6-17.2); WHITE BLOOD COUNT 6.7 TH/MM3 (4.0-11.0)
[2017-07-24 07:43] LABS: BICARBONATE 26.6 MEQ/L (21.0-32.0); CALCIUM 9.6 MG/DL (8.5-10.1); CREATININE 0.96 MG/DL (0.60-1.30)
[2017-07-24] MEDS: DOCUSATE SODIUM 50 MG/SENNA 8.6 MG TAB PO SCH (07:45)
[2017-07-24] MEDS: SODIUM CHLORIDE 0.9% FLUSH 10 ML FLUSH IV FLUSH SCH (07:46)
[2017-07-24 08:18] LABS: BANDS 8 % (0-6); LYMPHOCYTES 4 % (9-44); MONOCYTES 2 % (0-8); NEUTROPHIL # MANUAL DIFF 6.3 TH/MM3 (1.8-7.7); POLYS (SEG NEUTROPHILS) 86 % (16-70)
[2017-07-24] MEDS ORDERED: predniSONE 10 MG TAB PO SCH (09:00)
--- NOTE | 2017-07-24 10:00 | HHI.PR ---
Subjective Remarks f/u for asthma exacerbation patient stated breathing has improved but continues to feel SOB. Denied any cough. He remains afebrile. Still on oxygen. Objective Vitals Vital Signs Date Time Temp Pulse Resp B/P (MAP) Pulse Ox O2 Delivery O2 Flow Rate FiO2 07/24/17 08:38 97.9 98 17 134/65 (88) 98 07/24/17 07:10 97 21 07/24/17 04:00 98.3 87 19 118/56 (76) 95 07/24/17 00:00 99.0 99 20 131/66 (87) 98 07/23/17 21:00 98.9 99 20 138/69 (92) 100 07/23/17 20:00 127 07/23/17 19:54 96 Nasal Cannula 4.00 07/23/17 19:39 100.6 112 18 139/76 (97) 96 07/23/17 17:47 95 Nasal Cannula 4.00 07/23/17 16:37 99.1 119 18 149/74 (99) 92 07/23/17 15:10 121 20 135/75 (95) 96 Nasal Cannula 2.00 07/23/17 13:40 93 Room Air 07/23/17 13:40 26 93 Room Air 07/23/17 13:30 112 28 129/89 (102) 93 07/23/17 12:04 98.4 117 16 127/68 (87) 95 I/O 07/23/17 07/23/17 07/23/17 07/24/17 07/24/17 07/24/17 07:00 15:00 23:00 07:00 15:00 23:00 Intake Total 1000 ml Balance 1000 ml Intake IV Total 1000 ml Result Diagram: 07/24/1760107/24/17601 Objective Remarks GENERAL: in NAD CARDIOVASCULAR: Regular rate and rhythm without murmurs, gallops, or rubs. RESPIRATORY: diffuse expiratory wheezing. No accessory muscle use. GASTROINTESTINAL: Abdomen soft, non-tender, nondistended. Medications and IVs Current Medications Methylprednisolone Sodium Succinate (SoluMEDROL INJ) 125 mg ONCE ONCE IV PUSH Last administered on 07/23/17at 12:32; Start 07/23/17 at 12:15; Stop 07/23/17 at 12:16; Status DC Albuterol/ Ipratropium (Duoneb Neb) 1 ampule Q15M INH Last administered on 07/23at 12:19; Start 07/23/17 at 12:15; Stop 07/23/17 at 12:46; Status DC Sodium Chloride (NS Flush) 2 ml UNSCH PRN IVF FLUSH AFTER USING IV ACCESS; Start 07/23/17 at 12:15; Stop 07/23/17 at 15:55; Status DC Sodium Chloride 1,000 ml @ 999 mls/hr BOLUS ONCE IV Last administered on 07/23at 13:39; Start 07/23/17 at 12:15; Stop 07/23/17 at 13:15; Status DC Albuterol Sulfate (Albuterol Neb) 2.5 mg Q15M INH Last administered on at 13:48; Start 07/23/17 at 13:45; Stop 07/23/17 at 14:16; Status DC Albuterol/ Ipratropium (Duoneb Neb) 1 ampule Q4HR WHILE AWAKE NEB NEB Last administered on 07/24/17at 07:07; Start 07/23/17 at 16:00 Albuterol/ Ipratropium (Duoneb Neb) 1 ampule Q2HR NEB PRN NEB SOB/WHEEZING Last administered on 07/24/17at 01:25; Start 07/23/17 at 15:45 Prednisone (Deltasone) 40 mg DAILY PO ; Start 07/24/17 at 09:00; Stop 07/24/17 at 09:00; Status DC Sodium Chloride (NS Flush) 2 ml UNSCH PRN IV FLUSH FLUSH AFTER USING IV ACCESS ; Start 07/23/17 at 15:45 Sodium Chloride (NS Flush) 2 ml BID IV FLUSH Last administered on 07/24/17at 07: 46; Start 07/23/17 at 21:00 Acetaminophen (Tylenol) 650 mg Q4H PRN PO TEMP > 100.4; Start 07/23/17 at 15:45 Ondansetron HCl (Zofran Inj) 4 mg Q6H PRN IVP NAUSEA OR VOMITING; Start at 15:45 Enoxaparin Sodium (Lovenox Inj) 40 mg Q24H SQ ; Start 07/23/17 at 17:00 Naloxone HCl (Narcan Inj) 0.4 mg UNSCH PRN IV PUSH SEE LABEL COMMENTS; Start at 15:45 Senna/Docusate Sodium (Francheska-Colace) 1 tab BID PO ; Start 07/23/17 at 21:00 Magnesium Hydroxide (Milk Of Magnesia Liq) 30 ml Q12H PRN PO Mild constipation ; Start 07/23/17 at 15:45 Sennosides (Senokot) 17.2 mg Q12H PRN PO Moderate constipation; Start 07/23/17 at 15:45 Bisacodyl (Dulcolax Supp) 10 mg DAILY PRN RECTAL SEVERE CONSITIPATION; Start at 15:45 Lactulose (Lactulose Liq) 30 ml DAILY PRN PO SEVERE CONSITIPATION; Start at 15:45 Methylprednisolone Sodium Succinate (SoluMEDROL INJ) 40 mg ONCE ONCE IV PUSH Last administered on 07/23/17at 17:12; Start 07/23/17 at 17:00; Stop 07/23/17 at 17:02; Status DC Methylprednisolone Sodium Succinate (SoluMEDROL INJ) 40 mg Q6HR IV PUSH Last administered on 07/24/17at 06:11; Start 07/24/17 at 00:00 Magnesium Oxide (Mag-Ox) 400 mg ONCE ONCE PO ; Start 07/23/17 at 18:15; Stop at 18:16; Status DC Iohexol (Omnipaque 350 Inj) 72 ml STK-MED ONCE IVCONTRAST Last administered on 07/23/17at 18:24; Start 07/23/17 at 18:24; Stop 07/23/17 at 18:25; Status DC A/P Problem List: (1) Asthma exacerbation ICD Code: J45.901 - Unspecified asthma with (acute) exacerbation Assessment and Plan 21-year-old male with PMH of asthma who currently smokes who presents to the ED with SOB and wheezing not relieved with albuterol treatments at home. Asthma exacerbation Acute respiratory failure with hypoxia desaturating on room air, now requiring oxygen supplement - Chest x-ray reviewed, no acute disease. CTA no PE -clinically improving continue with duonebs, albuterol, solumedrol. Tobacco use - Discussed the importance of tobacco and marijuana cessation and dangers associated with this. DVT prophylaxis- subq Lovenox Inga Rao MD Jul 24, 2017 10:00
--- NOTE | 2017-07-24 15:20 | EKG ---
Date Performed: 07/23/2017 Time Performed: 15:25:00 PTAGE: 21 years EKG: SINUS TACHYCARDIA BORDERLINE RIGHT AXIS DEVIATION PATTERN CONSISTENT WITH PULMONARY DISEASE POSSIBLE RIGHT VENTRICULAR CONDUCTION DELAY NONSPECIFIC T-WAVE ABNORMALITY Compared to previous trac ing, rate has increased ABNORMAL ECG PREVIOUS TRACING : 03/29/2017 02.15 DOCTOR: Bello Moore Interpretating Date/Time 07/24/2017 15:19:57
[2017-07-24] MEDS ORDERED: ALBUAER3 INH (15:36)
[2017-07-24] MEDS ORDERED: IPRAAER INH (15:36)
[2017-07-24] MEDS ORDERED: PRED10PA PO (15:36)
--- NOTE | 2017-07-24 15:37 | HHI.DCPOC ---
Discharge Care Plan Diagnosis: (1) Asthma exacerbation Additional Problems Id symptoms worsens return to emergency department or call 911. Goals to Promote Your Health * To prevent worsening of your condition and complications * To maintain your health at the optimal level Directions to Meet Your Goals Take your medications as prescribed Follow your dietary instruction Follow activity as directed Keep your appointments as scheduled Take your immunizations and boosters as scheduled If your symptoms worsen call your PCP, if no PCP go to Urgent Care Center or Emergency Room Smoking is Dangerous to Your Health. Avoid second hand smoke Call the 24-hour hour crisis hotline for domestic abuse at Inga Rao MD Jul 24, 2017 15:37
--- NOTE | 2017-07-24 15:38 | HHI.DS ---
Discharge Summary Admission Date Jul 23, 2017 at 18:05 Admitting Diagnosis asthma exacerbation (1) Asthma exacerbation ICD Code: J45.901 - Unspecified asthma with (acute) exacerbation Brief History - From Admission Written by Mya Foss, acting as scribe for Dr. Torres on 07/23/17 at 17:15. 21-year-old [place] male with past medical history significant for asthma and seasonal allergies who presents to the ED with complaints of difficulty breathing and wheezing. Patient reports that difficulty breathing began last night and reports trying to use his home medications with little relief. He does endorse some chills, denies fever. He also reports productive cough for a yellow/greenish sputum, as any ill contacts. He does smoke tobacco as well as occasional marijuana, denies any illicit drug use or inhalation of drugs or cocaine. He repots visiting the ED about twice a year due to asthma exacerbation , had never required mechanical ventilation. CBC/BMP: 07/24/17 0602 07/24/17 0602 Significant Findings Laboratory Tests Test 07/23/17 12:40 07/23/17 17:10 07/23/17 17:15 07/24/17 06:02 Neutrophils (%) (Auto) 73.5 % (16.0-70.0) Monocytes (%) (Auto) 12.5 % (0.0-8.0) Lymphocytes # (Auto) 0.6 TH/MM3 (1.0-4.8) Aspartate Amino Transf (AST/SGOT) 43 U/L (15-37) Urine Cannabinoids Screen POS (NEG) Blood Gas Oxygen Saturation 89 % (90-100) Neutrophils % (Manual) 86 % (16-70) Band Neutrophils % 8 % (0-6) Lymphocytes % 4 % (9-44) Random Glucose 119 MG/DL (74-106) PE at Discharge GENERAL: in NAD CARDIOVASCULAR: Regular rate and rhythm without murmurs, gallops, or rubs. RESPIRATORY: diffuse expiratory wheezing. No accessory muscle use. GASTROINTESTINAL: Abdomen soft, non-tender, nondistended. Pt Condition on Discharge: Good Discharge Disposition: Discharge Home Discharge Instructions DIET: Follow Instructions for: As Tolerated, No Restrictions Activities you can perform: Regular-No Restrictions Inga Rao MD Jul 24, 2017 15:38
[2017-07-24] MEDS: ENOXAPARIN SODIUM 40 MG/0.4 ML SYRINGE SQ SCH (17:00)
== END 2017-07-24 17:51 | disposition home or self-care (01) | DRG 189 ==
LOC: NEPC 12:01 → NEDA 15:34 → NEPHCDU 16:35 → OBSVTOIN 18:05 → N05A 21:00
PROVIDERS: ADMIT Family Medicine; ATTEND Family Medicine
DX: J96.01 Acute respiratory failure with hypoxia (principal); J45.901 Unspecified asthma with (acute) exacerbation; F17.200 Nicotine dependence, unspecified, uncomplicated; R68.83 Chills (without fever); R00.0 Tachycardia, unspecified
CPT/HCPCS: 36600; 71045; 71275; 76937; 80048; 80053; 80307; 82805; 85007; 85025; 85027; 93005; 94150; 94640; 94664; 96361; 96374; J2920; J2930; J7030; J7613; Q9967

== ENCOUNTER 2017-10-14 04:23 | Emergency (ER) | payer OTHER ==
[~2017-10-14] VITALS: Ht 182.9 cm; Wt 75.0 kg
[~2017-10-14 04:23] MED LIST changes: -ALBU0.08 NEB; +IPRAAER INH; +PRED10PA PO; -PRED20 PO
[2017-10-14 04:34] VITALS: BP 110/62; PULSE 67; RESP 18; TEMP 97.8; O2SAT 99
[2017-10-14] MEDS ORDERED: predniSONE 20 MG TAB PO ONE (05:15)
[2017-10-14] MEDS: RESP: ALBUTEROL 2.5 MG/IPRATROPIUM 0.5 MG NEB (SCH) INH ×2 (05:30→05:45)
[2017-10-14] MEDS ORDERED: VENTAER INH (05:51)
[2017-10-14] MEDS ORDERED: PRED50 PO (05:51)
--- NOTE | 2017-10-14 05:51 | PD ---
HPI Chief Complaint: Respiratory Distress Time Seen by Provider: 05:06 Travel History International Travel<30 days: No Contact w/Intl Traveler<30days: No Traveled to known affect area: No History of Present Illness HPI Patient is a 22-year-old male presenting to the emergency department for evaluation of asthma symptoms. Patient states he felt short of breath earlier however he is feeling better now. He wanted to come in to get checked out before his asthma got worse. He does not have his inhaler or his nebulizer machine at home. He denies any wheezing, fever, chills, cough. Symptoms are mild in nature, there are no alleviating or exacerbating factors at this time. Symptom onset was gradual. PFSH Past Medical History Asthma: Yes Cardiovascular Problems: No COPD: No Genitourinary: No Musculoskeletal: No Neurologic: No Reproductive: No Respiratory: Yes (Asthma) Sleep Apnea: No Past Surgical History Other Surgery: Yes (right arm surgery ) Social History Alcohol Use: Yes (occasional ) Tobacco Use: Yes (CIGARS) Substance Use: No Allergies-Medications (Allergen,Severity, Reaction): Coded Allergies: No Known Allergies (Verified Allergy, Unknown, 07/23/17) Reported Meds & Prescriptions Reported Meds & Active Scripts Active Prednisone 50 Mg Tab 50 Mg PO DAILY 3 Days Ventolin Hfa 18 GM Inh (Albuterol Sulfate) 90 Mcg/Act Aer 2 Puff INH Q4-6H PRN Combivent Respimat Inh (Ipratropium-Albuterol Inh) 20-100 Usp/Act Aero 1 Puff INH QID Prednisone (21) 10 mg tab Dose Pack (Prednisone) 10 Mg Pack 10 Mg PO DIRECTED Proair Hfa 8.5 GM Inh (Albuterol Sulfate) 90 Mcg/Act Aer 2 Puff INH Q4-6H PRN 108 mcg/actuation Review of Systems Except as stated in HPI: all other systems reviewed are Neg Respiratory: Positive: Shortness of Breath Physical Exam Narrative GENERAL: Well-developed, well-nourished, alert -[place] Citizen male. Presenting in no acute distress. SKIN: Warm and dry. HEAD: Atraumatic. Normocephalic. EYES: Pupils equal and round. No scleral icterus. No injection or drainage. ENT: No nasal bleeding or discharge. Mucous membranes pink and moist. NECK: Trachea midline. No JVD. CARDIOVASCULAR: Regular rate and rhythm. RESPIRATORY: No accessory muscle use. Clear to auscultation. Breath sounds equal bilaterally. No wheezes, rhonchi, rales noted. GASTROINTESTINAL: Abdomen soft, non-tender, nondistended. Hepatic and splenic margins not palpable. MUSCULOSKELETAL: Extremities without clubbing, cyanosis, or edema. No obvious deformities. NEUROLOGICAL: Awake and alert. No obvious cranial nerve deficits. Motor grossly within normal limits. Five out of 5 muscle strength in the arms and legs. Normal speech. PSYCHIATRIC: Appropriate mood and affect; insight and judgment normal. Data Data Last Documented VS Vital Signs Date Time Temp Pulse Resp B/P (MAP) Pulse Ox O2 Delivery O2 Flow Rate FiO2 10/14/17 05:53 10/14/17 04:34 97.8 67 18 99 Room Air Orders Orders Oximetry (10/14/17 05:06) Prednisone (Deltasone) (10/14/17 05:15) Albuterol-Ipratropium Neb (Duoneb Neb) (10/14/17 05:15) Ed Discharge Order (10/14/17 05:52) [facility] Medical Decision Making Medical Screen Exam Complete: Yes Emergency Medical Condition: Yes Interpretation(s) Vital Signs Date Time Temp Pulse Resp B/P (MAP) Pulse Ox O2 Delivery O2 Flow Rate FiO2 10/14/17 05:53 10/14/17 04:34 97.8 67 18 110/62 (78) 99 Room Air Differential Diagnosis Asthma versus asthma exacerbation versus respiratory distress versus other Narrative Course Patient is well-appearing 22-year-old male presenting to prevent asthma attack. Patient's vital signs are stable, is well oxygenated on room air, lungs are clear to auscultation bilaterally. Patient will be given duo nebs and prednisone orally. Will reevaluate. Patient refused further duo nebs after the first dose, he also refused prednisone. He is requesting to be discharged. He reports that he feels well. Patient was encouraged to follow-up with primary doctor at the [facility]. He was given prescriptions for Ventolin inhaler as well as oral prednisone. He was encouraged return to emergency department for any new worsening symptoms. Patient verbalized understanding of instructions. Patient stable for discharge. Diagnosis Primary Impression: Asthma Qualified Codes: J45.909 - Unspecified asthma, uncomplicated Referrals: Primary Care Physician Patient Instructions: General Instructions Additional Instructions: Use inhaler as needed as directed for shortness of breath and wheezing Follow-up with your primary doctor Return to emergency department for any new or worsening symptoms Med/Other Pt SpecificInfo: Prescription(s) given Scripts Prednisone (Prednisone) 50 Mg Tab 50 MG PO DAILY for 3 Days, #3 TAB 0 Refills Prov: Alie Whitehead 10/14/17 Albuterol 18 GM Inh (Ventolin Hfa 18 GM Inh) 90 Mcg/Act Aer 2 PUFF INH Q4-6H Y for SHORTNESS OF BREATH, #1 INHALER 0 Refills Prov: Alie Whitehead 10/14/17 Disposition: 01 DISCHARGE HOME Condition: Stable Alie Whitehead October 14, 2017 05:51
== END 2017-10-14 06:13 | disposition home or self-care (01) ==
LOC: NEPD 04:23
DX: J45.909 Unspecified asthma, uncomplicated (principal); R06.02 Shortness of breath; Z72.0 Tobacco use
CPT/HCPCS: 94664; 99283

== ENCOUNTER 2017-11-15 05:28 | Emergency (ER) | payer OTHER ==
[~2017-11-15] VITALS: Ht 182.9 cm; Wt 75.0 kg
[~2017-11-15 05:28] MED LIST changes: +PRED50 PO; +VENTAER INH
[2017-11-15 05:35] VITALS: BP 111/77; PULSE 74; RESP 16; TEMP 97.5; O2SAT 97
[2017-11-15] MEDS ORDERED: ALBU0.08 NEB (06:14)
[2017-11-15] MEDS ORDERED: methylPREDNISolone SOD SUCC 125 MG/2 ML VIAL IV PUSH ONE (06:15)
--- NOTE | 2017-11-15 06:17 | PD ---
HPI Chief Complaint: Respiratory Symptoms Time Seen by Provider: 06:13 Travel History International Travel<30 days: No Contact w/Intl Traveler<30days: No Traveled to known affect area: No History of Present Illness HPI 22-year-old male presents to the emergency department for complaint of asthma attack. Patient states symptoms have been present for the past 2 hours. Patient is out of his rescue inhaler. Patient has no other medical concerns or problems. Patient does not smoke cigarettes. Patient denies any recent febrile illness or productive cough. Patient is not aware of exacerbating or triggering events. Patient notes that bronchodilator therapy alleviate symptoms. Patient denies other concerns or complaints no chest pain no abdominal pain no vomiting no diarrhea no flank pain no joint pain or swelling no injury or fall no recent long distance travel. PFSH Past Medical History Narrative Medical Asthma, right arm surgery; cigar tobacco use; nursing notes reviewed Asthma: Yes Cardiovascular Problems: No COPD: No Genitourinary: No Musculoskeletal: No Neurologic: No Reproductive: No Respiratory: Yes (asthma) Sleep Apnea: No Tetanus Vaccination: Unknown Influenza Vaccination: No Past Surgical History Other Surgery: Yes (right arm surgery ) Social History Alcohol Use: Yes (occasional ) Tobacco Use: Yes (CIGARS) Substance Use: No Allergies-Medications (Allergen,Severity, Reaction): Coded Allergies: No Known Allergies (Verified Allergy, Unknown, 07/23/17) Reported Meds & Prescriptions Reported Meds & Active Scripts Active Reported Albuterol Neb (Albuterol Sulfate) 2.5 Mg/3 Ml Neb 2.5 Mg NEB Q4HR NEB While awake Narrative Medication Albuterol rescue inhaler; Combivent inhaler (out of med) Review of Systems Except as stated in HPI: all other systems reviewed are Neg Physical Exam Narrative GENERAL: Well-developed well-nourished male in no acute distress mild respiratory distress; no stridor no hoarseness SKIN: Warm and dry. HEAD: Normocephalic. EYES: No scleral icterus. No injection or drainage. NECK: Supple, trachea midline. No JVD or lymphadenopathy. CARDIOVASCULAR: Regular rate and rhythm without murmurs, gallops, or rubs. RESPIRATORY: Breath sounds equal bilaterally markedly diminished bilaterally with expiratory wheezes and prolonged I:E ratio. No accessory muscle use. GASTROINTESTINAL: Abdomen soft, non-tender, nondistended. MUSCULOSKELETAL: No cyanosis, or edema. BACK: Nontender without obvious deformity. No CVA tenderness. Data Data Last Documented VS Vital Signs Date Time Temp Pulse Resp B/P (MAP) Pulse Ox O2 Delivery O2 Flow Rate FiO2 11/15/17 07:05 77 22 99 11/15/17 05:35 97.5 111/77 (88) Orders Orders Iv Access Insert/Monitor (11/15/17 06:13) Ecg Monitoring (11/15/17 06:13) Oximetry (11/15/17 06:13) Chest, Single Ap (11/15/17 06:13) Methylprednisolone So Succ Inj (Solumedr (11/15/17 06:15) Albuterol-Ipratropium Neb (Duoneb Neb) (11/15/17 06:15) Sodium Chlor 0.9% 1000 Ml Inj (Ns 1000 M (11/15/17 07:00) MDM Medical Decision Making Medical Screen Exam Complete: Yes Emergency Medical Condition: Yes Medical Record Reviewed: Yes Differential Diagnosis Exacerbation asthma, status asthmaticus, bronchitis, pneumonia, pneumothorax Narrative Course IV access obtained patient placed on conveyor monitor with continuous pulse oximetry patient administered Solu-Medrol 125 mg IV and DuoNeb updraft 3 At 7 AM patient is clinically markedly improved requests refill of medications for his albuterol inhaler Combivent inhaler and typically when he has an exacerbation of a steroid taper Medications refilled as requested patient given prednisone taper and encouraged to follow-up with primary care provider discontinued cigar use and increase fluid hydration. Patient's questions have been answered to his satisfaction and patient is stable for outpatient management. Diagnosis Primary Impression: Asthma exacerbation Additional Impression: Medication refill Referrals: Primary Care Physician call for appointment Patient Instructions: General Instructions Additional Instructions: Increase fluid hydration Continue current medications as presently prescribed Follow-up with primary care provider Take as needed acetaminophen/Tylenol for fever 100.4F or greater Discontinue cigarette/cigar use. Med/Other Pt SpecificInfo: Prescription(s) given Scripts Prednisone (21) 10 mg tab Dose Pack (Prednisone (21) 10 mg tab Dose Pack) 10 Mg Pack 10 MG PO DIRECTED for Inflammation, #1 DSPK 0 Refills Prov: Renetta Osorio MD 11/15/17 Ipratropium-Albuterol Inh (Combivent Respimat Inh) 20-100 Chcf/Act Aero 1 PUFF INH QID for Asthma Management, #1 INHALER 0 Refills Prov: Renetta Osorio MD 11/15/17 Albuterol 8.5 GM Inh (Proair Hfa 8.5 GM Inh) 90 Mcg/Act Aer 2 PUFF INH Q4-6H Y for SHORTNESS OF BREATH, #1 INHALER 1 Refill 108 mcg/actuation Prov: Renetta Osorio MD 11/15/17 Disposition: 01 DISCHARGE HOME Condition: Stable Renetta Osorio MD Nov 15, 2017 06:17
[2017-11-15] MEDS: RESP: ALBUTEROL 2.5 MG/IPRATROPIUM 0.5 MG NEB (SCH) INH ×2 (06:36→06:37)
--- NOTE | 2017-11-15 06:59 | RADRPT ---
EXAM DATE: 11/15/2017 6:56 AM EDT AGE/SEX: 22 years / Male INDICATIONS: Shortness of breath. CLINICAL DATA: This is the patient's initial encounter. Patient reports that signs and symptoms have been present for 1 day and indicates a pain score of 0/10. MEDICAL/SURGICAL HISTORY: Non-responsive. Non-responsive. [place] [facility] [place]. . FINDINGS: A single AP view of the chest demonstrates the lungs to be symmetrically aerated without evidence of mass, infiltrate or effusion. The cardiomediastinal contours are unremarkable. Osseous structures a re intact. CONCLUSION: Negative examination. Electronically signed by: Alex Wall MD 11/15/2017 6:57 AM EDT
[2017-11-15] MEDS ORDERED: SODIUM CHLOR 0.9% 1000 ML INJ 1,000 ML IV ONE (07:00)
[2017-11-15 07:05] VITALS: PULSE 77; RESP 22; O2SAT 99
[2017-11-15] MEDS ORDERED: ALBUAER3 INH (07:15)
[2017-11-15] MEDS ORDERED: PRED10PA PO (07:15)
[2017-11-15] MEDS ORDERED: IPRAAER INH (07:15)
== END 2017-11-15 07:42 | disposition home or self-care (01) ==
LOC: NEPC 05:28
DX: J45.901 Unspecified asthma with (acute) exacerbation (principal); Z76.0 Encounter for issue of repeat prescription; Z72.0 Tobacco use
CPT/HCPCS: 71045; 94640; 94664; 96374; 99284; J2930; J7030

== ENCOUNTER 2017-11-18 03:39 | Emergency (ER) | payer SELFPAY ==
[~2017-11-18] VITALS: Ht 185.4 cm; Wt 75.0 kg
[~2017-11-18 03:39] MED LIST changes: +ALBU0.08 NEB; -PRED50 PO; -VENTAER INH
[2017-11-18 03:40] VITALS: BP 119/58; PULSE 81; RESP 18; TEMP 97.6; O2SAT 100
--- NOTE | 2017-11-18 03:55 | PD ---
HPI Chief Complaint: Respiratory Distress Time Seen by Provider: 03:46 Travel History International Travel<30 days: No Contact w/Intl Traveler<30days: No Traveled to known affect area: No History of Present Illness HPI 22 y/o male presents with shortness of breath that started again this morning. He states he did not fill any of his prescriptions. He states his girlfriend has his nebulizer machine. He denies any other concurrent complaints. He states he feels worse when he moves around. He denies other modifying factors. Quality is wheezing. Severity is intermittent. He states he cannot afford his scripts. PFSH Past Medical History Asthma: Yes Cardiovascular Problems: No COPD: No Gastrointestinal Disorders: No Genitourinary: No Musculoskeletal: No Neurologic: No Reproductive: No Respiratory: Yes (asthma) Sleep Apnea: No Past Surgical History Other Surgery: Yes (right arm surgery ) Social History Alcohol Use: Yes (occasional ) Tobacco Use: Yes (CIGARS) Substance Use: No Allergies-Medications (Allergen,Severity, Reaction): Coded Allergies: No Known Allergies (Verified Allergy, Unknown, 11/18/17) Reported Meds & Prescriptions Reported Meds & Active Scripts Active Prednisone (21) 10 mg tab Dose Pack (Prednisone) 10 Mg Pack 10 Mg PO DIRECTED Combivent Respimat Inh (Ipratropium-Albuterol Inh) 20-100 Jail/Act Aero 1 Puff INH QID Proair Hfa 8.5 GM Inh (Albuterol Sulfate) 90 Mcg/Act Aer 2 Puff INH Q4-6H PRN 108 mcg/actuation Reported Albuterol Neb (Albuterol Sulfate) 2.5 Mg/3 Ml Neb 2.5 Mg NEB Q4HR NEB While awake Review of Systems Except as stated in HPI: all other systems reviewed are Neg Physical Exam Narrative GENERAL: 22 y/o male in no apparent distress SKIN: Focused skin assessment warm/dry. HEAD: Atraumatic. Normocephalic. EYES: Pupils equal and round. No scleral icterus. No injection or drainage. ENT: No nasal bleeding or discharge. Mucous membranes pink and moist. NECK: Trachea midline. CARDIOVASCULAR: Regular rate and rhythm. RESPIRATORY: Faint expiratory wheezing, no increased respiratory effort GASTROINTESTINAL: Abdomen soft, non-tender, nondistended. MUSCULOSKELETAL: No obvious deformities. No clubbing. No cyanosis. No edema. NEUROLOGICAL: Awake and alert. No obvious cranial nerve deficits. Motor grossly within normal limits. Normal speech. PSYCHIATRIC: Appropriate mood and affect; insight and judgment normal. Data Data Last Documented VS Vital Signs Date Time Temp Pulse Resp B/P (MAP) Pulse Ox O2 Delivery O2 Flow Rate FiO2 11/18/17 04:45 98 21 11/18/17 03:40 97.6 81 18 119/58 (78) Orders Orders Albuterol-Ipratropium Neb (Duoneb Neb) (11/18/17 04:00) Prednisone (Deltasone) (11/18/17 04:00) Albuterol-Ipratropium Neb (Duoneb Neb) (11/18/17 05:30) [facility] Medical Decision Making Medical Screen Exam Complete: Yes Emergency Medical Condition: Yes Medical Record Reviewed: Yes (pmh confirmed) Differential Diagnosis Asthma exacerbation, URI, medication refill Narrative Course Patient was here 3 days ago with blood work and imaging. He did not fill any of his medications. He has normal vitals. Will give 2 nebulizer treatments and p.o. prednisone and if improves he will need to fill prior prescriptions. He agrees to this. ctab after nebs, Patient denies any new complaints and states that they are feeling better. Patient happy with care, all questions answered. Patient knows that follow up is incumbent on them and to return to the emergency room immediately if new or worsening symptoms develop. Patient given strict return precautions, vitals reviewed and are normal, agrees to further workup as an outpatient and will feel his prescriptions he was given Diagnosis Primary Impression: Asthma exacerbation Qualified Codes: J45.901 - Unspecified asthma with (acute) exacerbation Patient Instructions: General Instructions Additional Instructions: fill your prescriptions from prior visit, return as needed, follow with primary monday Med/Other Pt SpecificInfo: No Change to Meds Disposition: DISCHARGE HOME Condition: Stable Sharifa العراقي MD Nov 18, 2017 03:55
[2017-11-18] MEDS ORDERED: predniSONE 50 MG TAB PO ONE (04:00)
[2017-11-18 04:45] VITALS: O2SAT 98
[2017-11-18] MEDS: RESP: ALBUTEROL 2.5 MG/IPRATROPIUM 0.5 MG NEB (SCH) INH (04:46)
[2017-11-18] MEDS ORDERED: RESP: ALBUTEROL 2.5 MG/IPRATROPIUM 0.5 MG NEB (SCH) NEB ONE (05:30)
== END 2017-11-18 06:16 | disposition home or self-care (01) ==
LOC: NEPE 03:39
DX: J45.901 Unspecified asthma with (acute) exacerbation (principal); Z72.0 Tobacco use
CPT/HCPCS: 94640; 94664; 99284; J7512

== ENCOUNTER 2017-11-19 09:11 | Emergency (ER) | payer SELFPAY ==
[~2017-11-19] VITALS: Ht 182.9 cm; Wt 73.0 kg
[2017-11-19 09:13] VITALS: BP 137/89; PULSE 91; RESP 17; TEMP 98; O2SAT 97
[2017-11-19 09:23] VITALS: PULSE 95; RESP 18; O2SAT 98
[2017-11-19] MEDS ORDERED: predniSONE 50 MG TAB PO ONE (09:30)
[2017-11-19] MEDS: RESP: ALBUTEROL 2.5 MG/IPRATROPIUM 0.5 MG NEB (SCH) INH (09:36)
--- NOTE | 2017-11-19 10:22 | PD ---
HPI Chief Complaint: Respiratory Symptoms Time Seen by Provider: 09:18 Travel History International Travel<30 days: No Contact w/Intl Traveler<30days: No Traveled to known affect area: No History of Present Illness HPI Patient is a 22 year old male who comes in complaining of an asthma exacerbation. He says this has been going on for a few days. He is a smoker and he says he ran out of his albuterol inhaler. He says he has a slight cough with nasal congestion. He denies fever or chills. He says he has chest tightness. He says this feels similar to previous asthma attacks. Severity is mild to moderate. PFSH Past Medical History Asthma: Yes Cardiovascular Problems: No COPD: No Diminished Hearing: No Gastrointestinal Disorders: No Genitourinary: No Musculoskeletal: No Neurologic: No Reproductive: No Respiratory: Yes (ASTHMA) Sleep Apnea: No Tetanus Vaccination: Unknown Past Surgical History Other Surgery: Yes (right arm surgery ) Social History Alcohol Use: Yes (occasional ) Tobacco Use: Yes (CIGARS) Substance Use: No Allergies-Medications (Allergen,Severity, Reaction): Coded Allergies: No Known Allergies (Verified Allergy, Unknown, 11/18/17) Reported Meds & Prescriptions Reported Meds & Active Scripts Active Proair Hfa 8.5 GM Inh (Albuterol Sulfate) 90 Mcg/Act Aer 2 Puff INH Q4-6H PRN 108 mcg/actuation Review of Systems Except as stated in HPI: all other systems reviewed are Neg General / Constitutional: No: Fever, Chills HENT: No: Headaches, Lightheadedness Respiratory: Positive: Shortness of Breath Gastrointestinal: No: Nausea, Vomiting Musculoskeletal: No: Myalgias, Edema Skin: No Rash, No Change in Pigmentation Neurologic: No: Weakness, Dizziness Physical Exam Narrative GENERAL: Awake and alert, no acute distress. SKIN: Focused skin assessment warm/dry. HEAD: Atraumatic. Normocephalic. EYES: Pupils equal and round. No scleral icterus. ENT: Mucous membranes pink and moist. NECK: Trachea midline. No JVD. CARDIOVASCULAR: Regular rate and rhythm. No murmur appreciated. RESPIRATORY: No accessory muscle use. Wheezing throughout both lungs. Breath sounds equal bilaterally. MUSCULOSKELETAL: No obvious deformities. No clubbing. No cyanosis. No edema. NEUROLOGICAL: Awake and alert. No obvious cranial nerve deficits. Motor grossly within normal limits. Normal speech. PSYCHIATRIC: Appropriate mood and affect; insight and judgment normal. Data Data Last Documented VS Vital Signs Date Time Temp Pulse Resp B/P (MAP) Pulse Ox O2 Delivery O2 Flow Rate FiO2 11/19/17 09:29 18 98 Room Air 11/19/17 09:23 95 11/19/17 09:13 98.0 137/89 (105) Orders Orders Albuterol-Ipratropium Neb (Duoneb Neb) (11/19/17 09:30) Prednisone (Deltasone) (11/19/17 09:30) [facility] Medical Decision Making Medical Screen Exam Complete: Yes Emergency Medical Condition: Yes Medical Record Reviewed: Yes Differential Diagnosis Asthma exacerbation versus pneumonia versus bronchitis Narrative Course Patient is a 22-year-old male who comes in complaining of an asthma exacerbation. Exam shows wheezing throughout both lungs. Patient given 3 DuoNeb's and a dose of prednisone. He reports feeling better. Lungs are clear to auscultation after treatment. Patient has been here 3 times now in the past 4 days. He has prescriptions from his first visit that he has not filled yet. He is advised to fill his prescriptions. Advised to quit smoking. Advised return to the ED as needed for any worsening symptoms. Diagnosis Primary Impression: Asthma exacerbation Qualified Codes: J45.901 - Unspecified asthma with (acute) exacerbation Patient Instructions: Asthma (ED), General Instructions Additional Instructions: Quit smoking. Fill the prescriptions were given 4 days ago. Return to the ED as needed for any worsening symptoms. Disposition: 01 DISCHARGE HOME Condition: Stable Emelia Murphy MD Nov 19, 2017 10:22
[2017-11-19] MEDS ORDERED: ALBUTEROL SULFATE 90 MCG/ACT HFA 8 GM INHALER INH SCH (10:30)
== END 2017-11-19 10:48 | disposition home or self-care (01) ==
LOC: NEPD 09:11
DX: J45.901 Unspecified asthma with (acute) exacerbation (principal); R09.81 Nasal congestion; Z72.0 Tobacco use
CPT/HCPCS: 94640; 94664; 99285; J7512